=== PATIENT | male | born 1970 | race Hispanic/Latino ===

== ENCOUNTER → 2019-02-12 | Outpatient (CLI) | payer OTHER | LOC: RAD 05:00 → EDSTATUS 02-19 12:00 | PROVIDERS: ATTEND Specialist | DX: Z01.818 Encounter for other preprocedural examination (principal); S82.891A Other fracture of right lower leg, initial encounter for closed fracture; Z53.8 Procedure and treatment not carried out for other reasons | CPT/HCPCS: 93005 ==